=== PATIENT | male | born 1955 | race Two or more races ===

== ENCOUNTER 2019-09-22 01:52 | Emergency (ER) | payer MEDICAID ==
[~2019-09-22] VITALS: Ht 170.2 cm; Wt 113.4 kg
[2019-09-22 02:46] LABS: Basophils # (auto) 0.1 uL; Basophils % (auto) 0.6 % (0.0-2.0); Eosinophils # (auto) 0.1 uL; Eosinophils % (auto) 1.5 % (0.0-7.0); Lymphocytes # (auto) 2.2 uL; Lymphocytes % (auto) 25.1 % (10.0-50.0); Neutrophils # (auto) 5.8 uL; White Blood Cell 8.9 10^3/uL (4.4-10.8)
[2019-09-22 02:47] LABS: Hematocrit 55.8 % (41.0-53.0); Hemoglobin 18.4 g/dL (13.5-17.5); Mean Corpuscular Hemoglobin 28.8 pg (28.0-32.0); Mean Corpuscular Hgb Conc. 33.1 g/dL (32.0-36.0); Mean Corpuscular Volume 87.1 fL (80.0-100.0); Monocytes # (auto) 0.7 uL; Monocytes % (auto) 7.6 % (0.0-12.0); Neutrophils % (auto) 65.2 % (37.0-80.0); Nucleated Red Blood Cells % 0.1 %; Platelet Count (auto) 161 10^3/uL (140-450); Red Cell Distribution Width 17.8 % (11.8-14.3)
[2019-09-22 03:05] LABS: Albumin 3.2 g/dL (3.4-5.0); Anion Gap 6 (5-15); BUN/Creatinine Ratio 15.9; Blood Urea Nitrogen 14 mg/dL (7-18); Calcium 8.2 mg/dL (8.5-10.1); Carbon Dioxide 26 mmol/L (21-32); Chloride 108 mmol/L (98-107); GFR African American 112 mL/min; GFR Non-African American 93 mL/min; Glucose 128 mg/dL (74-106); Potassium 4.3 mmol/L (3.5-5.1); Sodium 140 mmol/L (136-145)
[2019-09-22 03:09] LABS: Alanine Aminotransferase 36 U/L (16-61); Alkaline Phosphatase 87 U/L (45-117); Aspartate Aminotransferase 18 U/L (15-37); Bilirubin, Total 0.6 mg/dL (0.2-1.0); Total Protein 7.3 g/dL (6.4-8.2)
[2019-09-22] MEDS ORDERED: HYDROmorphone HCL 2 MG/ML VL IV ONE (06:45)
[2019-09-22] MEDS ORDERED: PROMETHAZINE HCL 25 MG/ML 1ML IV ONE (06:45)
[2019-09-22] MEDS ORDERED: SODIUM CHLORIDE 0.9% 1,000 ML IV ONE (06:48)
[2019-09-22 08:37] VITALS: BP 139/76
== END 2019-09-22 09:50 | disposition home or self-care (01) ==
LOC: ER 01:55
DX: G43.909 Migraine, unspecified, not intractable, without status migrainosus (principal); E86.0 Dehydration; E46 Unspecified protein-calorie malnutrition; E78.5 Hyperlipidemia, unspecified; I10 Essential (primary) hypertension
CPT/HCPCS: 36415; 70450; 71045; 80053; 83880; 84484; 85025; 93005; 96361; 96374; 96375; 99285; J1170; J2550; J7030

== ENCOUNTER 2019-09-24 15:28 | Emergency (ER) | payer MEDICAID ==
[~2019-09-24] VITALS: Ht 170.2 cm; Wt 115.7 kg
[2019-09-24 19:12] VITALS: BP 120/68
== END 2019-09-24 21:27 | disposition home or self-care (01) ==
LOC: ER 15:28
DX: H66.92 Otitis media, unspecified, left ear (principal); E78.5 Hyperlipidemia, unspecified; I10 Essential (primary) hypertension
CPT/HCPCS: 70480

== ENCOUNTER 2020-06-30 01:05 | Inpatient (IN) | payer MEDICAID ==
[~2020-06-30] VITALS: Ht 170.2 cm; Wt 89.3 kg
[2020-06-30 03:23] LABS: Basophils # (auto) 0 10 ^3/uL (0-0.2); Basophils % (auto) 0.4 % (0.0-2.0); Eosinophils # (auto) 0.2 10 ^3/uL (0-0.8); Eosinophils % (auto) 1.9 % (0.0-7.0); Hematocrit 50.2 % (41.0-53.0); Hemoglobin 16.9 g/dL (13.5-17.5); Lymphocytes # (auto) 2.9 10 ^3/uL (0.4-5.4); Lymphocytes % (auto) 31.6 % (10.0-50.0); Mean Corpuscular Hemoglobin 29.2 pg (28.0-32.0); Mean Corpuscular Hgb Conc. 33.7 g/dL (32.0-36.0); Mean Corpuscular Volume 86.7 fL (80.0-100.0); Monocytes % (auto) 10.8 % (0.0-12.0); Neutrophils # (auto) 5.1 10 ^3/uL (1.6-8.6); Neutrophils % (auto) 55.3 % (37.0-80.0); Nucleated Red Blood Cells % 0.6 %; Platelet Count (auto) 225 10^3/uL (140-450); Red Blood Cells 5.79 10^6/uL (4.5-5.90); Red Cell Distribution Width 13.5 % (11.8-14.3); White Blood Cell 9.2 10^3/uL (4.4-10.8)
[2020-06-30 03:39] LABS: INR 1.01 (0.9-1.15)
[2020-06-30 03:43] LABS: Albumin 3.1 g/dL (3.4-5.0); Anion Gap 7 (5-15); Blood Urea Nitrogen 14 mg/dL (7-18); Calcium 8.3 mg/dL (8.5-10.1); Carbon Dioxide 22 mmol/L (21-32); Chloride 109 mmol/L (98-107); Glucose 113 mg/dL (74-106); Potassium 3.6 mmol/L (3.5-5.1); Sodium 138 mmol/L (136-145)
[2020-06-30 03:50] LABS: Alanine Aminotransferase 35 U/L (16-61); Alkaline Phosphatase 93 U/L (45-117); Aspartate Aminotransferase 14 U/L (15-37); BUN/Creatinine Ratio 18.2; Bilirubin, Total 0.4 mg/dL (0.2-1.0); GFR African American 131 mL/min; GFR Non-African American 108 mL/min; Total Protein 6.8 g/dL (6.4-8.2)
[2020-06-30] MEDS ORDERED: ASPirin 81 mg TAB PO ONE (05:30)
[2020-06-30] MEDS ORDERED: dilTIAZem 25 MG/5 ML VIAL IV ONE (05:30)
[2020-06-30] MEDS ORDERED: AMIODARONE HCL 200 MG TAB PO ONE (06:15)
[2020-06-30] MEDS ORDERED: ONDANSETRON HCL 4 MG/2 ML VIAL IV PRN (07:30)
[2020-06-30] MEDS ORDERED: NITROGLYCERIN 0.4 MG SL TAB SL PRN (07:30)
[2020-06-30] MEDS ORDERED: ACETAMINOPHEN 325 MG TAB PO PRN (07:30)
[2020-06-30] MEDS ORDERED: MORPHINE SULFATE 4 MG/ML SYR/VIAL IV PRN (07:30)
[2020-06-30] MEDS ORDERED: MORPHINE SULF INJ 2 MG/ML SYRINGE 1ML IV PRN (07:30)
[2020-06-30] MEDS ORDERED: DOCUSATE SOD 100 MG CAP PO PRN (07:30)
[2020-06-30] MEDS: ASPirin 81 mg TAB PO SCH (09:29)
[2020-06-30] MEDS: ZINC SULFATE 220mg CAP or TAB PO SCH (09:29)
[2020-06-30] MEDS: ASCORBIC ACID 500 MG TAB PO SCH ×2 (09:30→21:25)
[2020-06-30] MEDS: MULTIPLE VITAMIN TAB PO SCH (09:30)
[2020-06-30] MEDS: AMIODARONE HCL 200 MG TAB PO SCH ×2 (09:30→21:25)
[2020-06-30] MEDS: ENOXAPARIN SOD 40 MG/0.4 ML SYRINGE SC SCH (09:31)
[2020-06-30] MEDS ORDERED: AMIODARONE HCL 150 MG in D5W 5% 100 ML IV ONE (10:45)
[2020-06-30] MEDS ORDERED: AMIODARONE 450mg/250ml AE 250 ML IV SCH ×3 (11:00→23:00)
[2020-06-30] MEDS: SODIUM CHLOR 0.9% PF (SALINE LOCK) 10ML VIAL/SYR IV SCH ×2 (14:13→21:25)
[2020-06-30 17:00] VITALS: BP 101/57
[2020-06-30] MEDS: HYDROcodone-ACET 5/325MG TAB PO PRN (21:26)
[2020-06-30 22:00] VITALS: BP 138/71
[2020-07-01] MEDS: SODIUM CHLOR 0.9% PF (SALINE LOCK) 10ML VIAL/SYR IV SCH ×3 (06:15→21:42)
[2020-07-01 06:29] LABS: Albumin 3.1 g/dL (3.4-5.0); Calcium 8.2 mg/dL (8.5-10.1); Magnesium 2.4 mg/dL (1.6-2.6); Potassium 4.3 mmol/L (3.5-5.1)
[2020-07-01 06:32] LABS: BUN/Creatinine Ratio 13.7; Bilirubin, Total 0.9 mg/dL (0.2-1.0); Total Protein 6.9 g/dL (6.4-8.2)
[2020-07-01 06:50] VITALS: BP 140/73
[2020-07-01 08:05] VITALS: BP 142/72
[2020-07-01 09:00] VITALS: BP 142/72
[2020-07-01] MEDS: ASCORBIC ACID 500 MG TAB PO SCH ×2 (10:05→21:42)
[2020-07-01] MEDS: ZINC SULFATE 220mg CAP or TAB PO SCH (10:05)
[2020-07-01] MEDS: ASPirin 81 mg TAB PO SCH (10:06)
[2020-07-01] MEDS: ENOXAPARIN SOD 40 MG/0.4 ML SYRINGE SC SCH (10:06)
[2020-07-01] MEDS: MULTIPLE VITAMIN TAB PO SCH (10:06)
[2020-07-01] MEDS: AMIODARONE HCL 200 MG TAB PO SCH ×2 (10:06→21:42)
[2020-07-01 13:00] VITALS: BP 155/85
[2020-07-01] MEDS: TEMAZEPAM 15 MG CAP PO PRN (21:42)
[2020-07-01 22:28] VITALS: BP 160/78
[2020-07-02] VITALS (7 sets, daily range): BP systolic 132–154; BP diastolic 67–94
[2020-07-02] MEDS: SODIUM CHLOR 0.9% PF (SALINE LOCK) 10ML VIAL/SYR IV SCH ×3 (06:17→21:40)
[2020-07-02 07:34] LABS: BUN/Creatinine Ratio 12.4; Calcium 8.6 mg/dL (8.5-10.1); Potassium 4.4 mmol/L (3.5-5.1)
[2020-07-02] MEDS ORDERED: ADENOSINE 104 MG in GIVE UN-DILUTED 0 ML IV STA (08:13)
[2020-07-02] MEDS: MULTIPLE VITAMIN TAB PO SCH (10:53)
[2020-07-02] MEDS: ASCORBIC ACID 500 MG TAB PO SCH ×2 (10:53→21:40)
[2020-07-02] MEDS: AMIODARONE HCL 200 MG TAB PO SCH ×2 (10:53→21:40)
[2020-07-02] MEDS: ASPirin 81 mg TAB PO SCH (10:54)
[2020-07-02] MEDS: ZINC SULFATE 220mg CAP or TAB PO SCH (10:54)
[2020-07-02] MEDS: ENOXAPARIN SOD 40 MG/0.4 ML SYRINGE SC SCH (10:54)
[2020-07-02] MEDS ORDERED: LISINOPRIL 5 MG TAB PO ONE (12:30)
[2020-07-02] MEDS: TEMAZEPAM 15 MG CAP PO PRN (21:40)
[2020-07-03] MEDS: ENOXAPARIN SOD 40 MG/0.4 ML SYRINGE SC SCH (04:23)
[2020-07-03] MEDS: ASPirin 81 mg TAB PO SCH (04:29)
[2020-07-03 05:00] VITALS: BP 102/73
[2020-07-03] MEDS: SODIUM CHLOR 0.9% PF (SALINE LOCK) 10ML VIAL/SYR IV SCH ×2 (06:06→13:36)
[2020-07-03 06:44] LABS: Basophils # (auto) 0.1 10 ^3/uL (0-0.2); Basophils % (auto) 0.6 % (0.0-2.0); Eosinophils # (auto) 0.1 10 ^3/uL (0-0.8); Eosinophils % (auto) 1.7 % (0.0-7.0); Hematocrit 50.8 % (41.0-53.0); Hemoglobin 16.7 g/dL (13.5-17.5); Lymphocytes # (auto) 2.4 10 ^3/uL (0.4-5.4); Mean Corpuscular Hemoglobin 28.9 pg (28.0-32.0); Mean Corpuscular Hgb Conc. 32.9 g/dL (32.0-36.0); Mean Corpuscular Volume 87.8 fL (80.0-100.0); Monocytes # (auto) 0.9 10 ^3/uL (0-1.3); Monocytes % (auto) 10.4 % (0.0-12.0); Neutrophils # (auto) 5.3 10 ^3/uL (1.6-8.6); Neutrophils % (auto) 60.3 % (37.0-80.0); Nucleated Red Blood Cells % 0.1 %; Platelet Count (auto) 199 10^3/uL (140-450); Red Blood Cells 5.78 10^6/uL (4.5-5.90); Red Cell Distribution Width 13.7 % (11.8-14.3); White Blood Cell 8.8 10^3/uL (4.4-10.8)
[2020-07-03 07:03] LABS: BUN/Creatinine Ratio 14.3; Calcium 8.6 mg/dL (8.5-10.1); Potassium 4.2 mmol/L (3.5-5.1)
[2020-07-03 07:06] LABS: INR 1.03 (0.9-1.15); Partial Thromboplastin Time 29.8 sec (23.0-31.2)
[2020-07-03 09:00] VITALS: BP 121/68
[2020-07-03] MEDS: AMIODARONE HCL 200 MG TAB PO SCH (10:00)
[2020-07-03] MEDS: ASCORBIC ACID 500 MG TAB PO SCH (10:00)
[2020-07-03] MEDS: MULTIPLE VITAMIN TAB PO SCH (10:00)
[2020-07-03] MEDS: ZINC SULFATE 220mg CAP or TAB PO SCH (10:00)
[2020-07-03] MEDS ORDERED: LISINOPRIL 5 MG TAB PO SCH (10:00)
[2020-07-03] MEDS ORDERED: VERAPAMIL 2.5MG/ML INJ 2ML VIAL IV ONE (10:18)
[2020-07-03] MEDS ORDERED: HEPARIN SODIUM (PORCINE) 5000 UNITS/ML 1ML VIAL ONE (10:18)
[2020-07-03] MEDS ORDERED: ANGIOMAX 250 MG VIAL IV ONE (10:18)
[2020-07-03] MEDS ORDERED: fentaNYL CITRATE 100 MCG/2 ML VL ONE (10:19)
[2020-07-03] MEDS ORDERED: IODIXANOL 320MG/ML 100ML BTL IV ONE (10:19)
[2020-07-03] MEDS ORDERED: LIDOCAINE 2%HCL (LOCAL ANESTH.) INJ 20ML MDV ONE (10:19)
[2020-07-03] MEDS ORDERED: SODIUM CHL 0.9% 0 ML ONE (10:19)
[2020-07-03] MEDS ORDERED: MIDAZOLAM HCL 1MG/1ML-2 ML VIAL ONE (10:31)
[2020-07-03 12:30] VITALS: BP 135/76
[2020-07-03] MEDS: HYDROcodone-ACET 5/325MG TAB PO PRN (14:21)
[2020-07-03 16:39] VITALS: BP 142/90
[2020-07-03 18:39] VITALS: BP 142/90
== END 2020-07-03 19:05 | disposition home or self-care (01) | DRG 192 ==
LOC: EDBD 01:05 → ER 01:09 → TELE 01:10 → TELE-WESTW 11:09
PROVIDERS: ADMIT Internal Medicine; ATTEND Internal Medicine
PROC: B211YZZ Fluoroscopy of Multiple Coronary Arteries using Other Contrast (ICD-10-PCS; principal; 2020-07-03)
PROC: 4A023N7 Measurement of Cardiac Sampling and Pressure, Left Heart, Percutaneous Approach (ICD-10-PCS; 2020-07-03)
PROC: B215YZZ Fluoroscopy of Left Heart using Other Contrast (ICD-10-PCS; 2020-07-03)
DX: I48.91 Unspecified atrial fibrillation (principal); R07.89 Other chest pain; I16.0 Hypertensive urgency; I10 Essential (primary) hypertension; E78.5 Hyperlipidemia, unspecified; E11.9 Type 2 diabetes mellitus without complications; E66.01 Morbid (severe) obesity due to excess calories; Z20.828 Contact with and (suspected) exposure to other viral communicable diseases; E44.1 Mild protein-calorie malnutrition; I25.10 Atherosclerotic heart disease of native coronary artery without angina pectoris; I48.92 Unspecified atrial flutter; Z90.49 Acquired absence of other specified parts of digestive tract; Z68.30 Body mass index [BMI] 30.0-30.9, adult
CPT/HCPCS: 36415; 71045; 78452; 80048; 80053; 83735; 83880; 84484; 85025; 85610; 85730; 86850; 86900; 86901; 93005; 93017; 93306; 93458; 96372; 96374; G0378; J0153; J2250; J7060; Q9967